=== PATIENT | male | born 2000 | race Caucasian/White ===

== ENCOUNTER 2018-11-28 02:49 | Emergency (ER) | payer OTHER ==
--- NOTE | 2018-11-28 03:44 | ER Document Report ---
ED Head/Face/Scalp Injury - General Chief Complaint: Head Injury with LOC Stated Complaint: HEAD INJURY Time Seen by Provider: 11/28/18 03:22 Notes: Patient is a 18-year-old male that comes to the emergency department for chief complaint of head injury. He has been drinking alcohol to intoxication tonight. He is here with his 2 friends, patient is active duty. Patient is able to tell me his location, the year, the city, but not the details of the accident. His friends at bedside states that they were taking turns trying to black flip off of the bed of a truck, patient messed up and landed on his head instead. They state he was knocked out for "10 minutes". They state that when he woke up he was confused so they became concerned and brought him to the emergency department. Patient reports pain over the right elbow area, denies any other pain at this time. He has not vomited. Triage nurse tells me he was confused initially but now he is answering questions appropriately and following directions. He takes no daily medications. He is up-to-date on his tetanus. Past Medical History - General Information source: Patient, Friend - Social History Smoking Status: Never Smoker Frequency of alcohol use: Occasional Drug Abuse: None Lives with: Friend Family History: Reviewed & Not Pertinent Musculoskeletal Medical History: Reports Hx Musculoskeletal Deformity, Reports Hx Musculoskeletal Trauma Surgical Hx: Negative - Immunizations Immunizations up to date: Yes Hx Diphtheria, Pertussis, Tetanus Vaccination: Yes Review of Systems - Review of Systems Constitutional: No symptoms reported EENT: No symptoms reported Cardiovascular: No symptoms reported Respiratory: No symptoms reported Gastrointestinal: No symptoms reported Genitourinary: No symptoms reported Male Genitourinary: No symptoms reported Musculoskeletal: See HPI Skin: No symptoms reported Hematologic/Lymphatic: No symptoms reported Neurological/Psychological: See HPI Physical Exam - Vital signs Vitals: Temp Pulse Resp BP Pulse Ox 98.4 F 88 19 142/77 H 99 11/28/18 03:33 11/28/18 03:33 11/28/18 03:33 11/28/18 03:33 11/28/18 03:33 - Notes Notes: GENERAL: Alert, interacts well. No acute distress. HEAD: Normocephalic, atraumatic. EYES: Pupils equal, round, and reactive to light. Extraocular movements intact. ENT: Oral mucosa moist, tongue midline. Oropharynx unremarkable. Airway patent. Nares patent, no nasal septal hematoma, TM's intact. NECK: Full range of motion. Supple. Trachea midline. LUNGS: Clear to auscultation bilaterally, no wheezes, rales, or rhonchi. No respiratory distress. HEART: Regular rate and rhythm. No murmur ABDOMEN: Soft, non-tender. Non-distended. Bowel sounds present in all 4 quadrants. GENITOURINARY: Deferred EXTREMITIES: Moves all 4 extremities spontaneously. No edema, normal radial and dorsalis pedis pulses bilaterally. No cyanosis. Small contusion over the medial proximal forearm at the right elbow, normal range of motion of the elbow, normal distal neurovascular exam, unremarkable extremities otherwise. BACK: no cervical, thoracic, lumbar midline tenderness. No saddle anesthesia, normal distal neurovascular exam. Moves all extremities in full range of motion. NEUROLOGICAL: Alert and oriented to person, place, but not events. Occasional mildly slurred speech. GCS of 15. Cranial nerves II through XII grossly intact. SKIN: Warm, dry, normal turgor. No rashes or lesions noted. Course - Re-evaluation Re-evalutation: Fortunately on my exam patient is oriented and responds correctly to instructions. GCS of 15. No neurological deficits other than occasionally slurring his speech. He appears mildly intoxicated but not severely intoxicated. On reexamination he can ambulate without any difficulty and appears very alert. CT of the head and neck unremarkable. X-ray unremarkable. Fortunately patient appears to have only had a concussion with the head injury. Patient is still improved on reevaluation. I discussed his work-up in detail with patient and friend at bedside, discussed monitoring, head injury precautions, return precautions in detail. They state understanding and agreement with plan. Stable at time of discharge. - Vital Signs Vital signs: Temp Pulse Resp BP Pulse Ox 98.4 F 88 16 110/75 95 11/28/18 03:33 11/28/18 03:33 11/28/18 05:31 11/28/18 05:31 11/28/18 05:31 Discharge - Discharge Clinical Impression: Right elbow pain Head injury Qualifiers: Encounter type: initial encounter Qualified Code(s): S09.90XA - Unspecified injury of head, initial encounter Alcohol intoxication Qualifiers: Complication of substance-induced condition: with unspecified complication Qualified Code(s): F10.799 - Alcohol use, unspecified with intoxication, unspecified Condition: Stable Disposition: HOME, SELF-CARE Additional Instructions: The CAT scan of your head and neck are normal, the x-ray of your arm is normal. Your examination and symptoms are consistent with a concussion. This takes time to resolve. I recommend sleeping if possible if you develop a headache, avoid any risky behavior that could lead to a head injury especially while you are concussion symptoms are resolving. See head injury precautions listed below, see postconcussive syndrome listed below. Follow-up with primary care for additional evaluation and management. Take the muscle relaxer as prescribed, apply ice to your elbow and heat to your neck/shoulders. Rest. Avoid alcohol/intoxication. Return for any concerning symptoms. Head Injury Precautions At this point, there is no evidence that your head injury is serious. Observation is necessary, however. Take only clear liquids for the first few hours, unless told otherwise by the doctor. If no pain medication was prescribed, you may take acetaminophen according to the directions on the bottle. Do not take any medication that may alter your level of alertness (unless you've discussed it with the doctor first). Limit activity for the first 24 hours. Bed rest is best. During the first 24 hours, check to see approximately every two to three hours that the patient is easily arousable, responds normally, and can perform common tasks such as walking without difficulty. Contact your doctor or go to the hospital if any of the following things occur: Persistent vomiting, difficulty in arousing the patient, worsening or continued headache, or failure to improve as expected. Head injuries can cause symptoms that persist for a few days or even a few weeks. Post-Concussion Syndrome Post-concussion syndrome often follows a head injury. Dizziness, mild nausea, mild headache, trouble concentrating, and a general sense of "not being right" may persist for a week or two. This is a frequent complication of concussion. However, if the symptoms worsen, or new symptoms develop, you should be re- examined by the physician. There is no specific cure for post-concussion syndrome. You can take mild pain medication such as ibuprofen or acetaminophen. While you should not drive if you are dizzy, you can get back to your regular activities as quickly as the symptoms will allow. And while vigorous exercise may worsen the headache, mild physical activity often is helpful. Sitting and thinking about your symptoms will worsen them. If difficulties continue, you may need referral for special therapy to help you regain full mental function. Call the physician if you are worsening, or if symptoms are still present in one week. Report any new symptoms immediately. Prescriptions: Methocarbamol [Robaxin-750] 750 mg PO QID PRN #20 tablet PRN Reason:
--- NOTE | 2018-11-28 03:44 | RADIOLOGY REPORT (SQ) ---
EXAM DESCRIPTION: CT HEAD WITHOUT IV CONTRAST COMPLETED DATE/TME: 11/28/2018 00:00 CLINICAL HISTORY: 18 years, Male, fall; head injury; LOC COMPARISON: None. TECHNIQUE: 191 Images stored on PACS. All CT scanners at this facility use dose modulation, iterative reconstruction, and/or weight based dosing when appropriate to reduce radiation dose to as low as reasonably achievable (ALARA). [facility]: Dose Right [facility]: CareDose [facility]: Dose Right [facility]: Teradose 4D [facility]: [employer] LIMITATIONS: None. FINDINGS: The globes are intact. The paranasal sinuses and mastoid air cells are unremarkable. No displaced or depressed skull fracture. No intra or extra-axial hemorrhage. CT is limited for evaluation of acute infarct. No CT evidence for large or territorial acute infarct. No mass. No midline shift IMPRESSION: Negative exam TECHNICAL DOCUMENTATION: Quality ID # 436: Final reports with documentation of one or more dose reduction techniques (e.g., Automated exposure control, adjustment of the mA and/or kV according to patient size, use of iterative reconstruction technique) copyright 2011 [employer]- All Rights Reserved
--- NOTE | 2018-11-28 03:52 | RADIOLOGY REPORT (SQ) ---
EXAM DESCRIPTION: CT CERVICAL SPINE WITHOUT IV CONTRAST COMPLETED DATE/TME: 11/28/2018 00:00 CLINICAL HISTORY: 18 years, Male, fall; head injury; LOC COMPARISON: None. TECHNIQUE: 277 Images stored on PACS. All CT scanners at this facility use dose modulation, iterative reconstruction, and/or weight based dosing when appropriate to reduce radiation dose to as low as reasonably achievable (ALARA). [facility]: Dose Right [facility]: CareDose [facility]: Dose Right [facility]: Teradose 4D [facility]: Smart [employer] LIMITATIONS: None. FINDINGS: Evaluation of spinal canal contents limited due to CT technique. However, vertebral body height and alignment is preserved. The disc spaces are maintained. Well-corticated ossific density associated with the T1 spinous process likely reflects unfused apophysis. The prevertebral soft tissues are normal. Disc spaces are maintained IMPRESSION: Unremarkable CT cervical spine TECHNICAL DOCUMENTATION: Quality ID # 436: Final reports with documentation of one or more dose reduction techniques (e.g., Automated exposure control, adjustment of the mA and/or kV according to patient size, use of iterative reconstruction technique) copyright 2011 [employer]- All Rights Reserved
--- NOTE | 2018-11-28 04:48 | RADIOLOGY REPORT (SQ) ---
EXAM: X-ray elbow three views CLINICAL DATA: 18-year-old male status post fall with right elbow pain TECHNICAL DATA: Three x-ray views of the right elbow were performed on 11/28/2018 at 4:25 AM. COMPARISONS: None FINDINGS: There is no evidence of fracture or dislocation. There is no significant arthritis or degenerative change. No focal lytic or sclerotic bone lesions are seen. Bone mineralization is normal. No focal soft tissue abnormalities are identified. IMPRESSION: No evidence of acute osseous injury involving the right elbow.
[2018-11-28 05:40] VITALS: BP 110/75
== END 2018-11-28 05:50 | disposition home or self-care (01) ==
LOC: ER 02:49
DX: S09.90XA Unspecified injury of head, initial encounter (principal); M25.521 Pain in right elbow; F10.929 Alcohol use, unspecified with intoxication, unspecified; X58.XXXA Exposure to other specified factors, initial encounter
CPT/HCPCS: 99284; 73080; 70450; 72125; L0172